=== PATIENT | male | born 1955 | race Caucasian/White ===

== ENCOUNTER → 2016-09-24 | Outpatient (REF) | LOC: WSOH 09:32 | DX: Z02.89 Encounter for other administrative examinations (principal) ==

== ENCOUNTER → 2017-12-08 | Outpatient (CLI) | payer BC | LOC: COL.LAB 09:16 | DX: R19.7 Diarrhea, unspecified (principal) ==

== ENCOUNTER 2019-05-18 18:39 | Emergency (ER) | payer BC ==
[~2019-05-18] VITALS: Ht 180.3 cm; Wt 90.9 kg
[2019-05-18 19:55] LABS: BASO % 0.2 % (0.0-2.0); EOS # 0.1 (0.0-0.7); EOS % 0.5 % (0-4.0); GRAN # 9.7 (1.4-6.5); GRAN % 81.6 % (42.2-75.2); HEMATOCRIT 41.5 % (42.0-52.0); LYMPH # 1.4 (1.2-3.4); LYMPH % 11.6 % (20.0-51.0); MEAN CELL VOLUME 95 fl (80.0-100.0); MEAN CORPUSCULAR HEMOGLOBIN 32 pg (27.0-31.0); MEAN CORPUSCULAR HGB CONC 34 g/dl (33.0-37.0); MEAN PLATELET VOLUME 10.1 fl (7.4-10.4); MONO # 0.6 (0.1-0.6); MONO % 4.8 % (1.7-9.3); PLATELET COUNT 132 K/mm3 (130-400); RED BLOOD COUNT 4.39 M/mm3 (4.20-5.60)
[2019-05-18 19:56] LABS: PROTHROMBIN TIME 11.8 SECONDS (9.7-12.8)
[2019-05-18 19:58] LABS: ALBUMIN 3.7 gm/dL (3.5-5.0); BILIRUBIN,TOTAL 0.4 mg/dL (0.0-1.0); CALCIUM 8.4 mg/dL (8.4-10.2); CREATININE, serum 0.94 (0.66-1.25); POTASSIUM 3.7 mmol/L (3.4-5.0); TOTAL PROTEIN 7.2 gm/dL (6.4-8.2)
[2019-05-18 23:20] VITALS: BP 125/82; PULSE 112; TEMP 98.4
== END 2019-05-18 23:30 | disposition short-term general hospital (02) ==
LOC: COL.ER 18:39
PROVIDERS: Emergency Medicine
DX: S72.091A Other fracture of head and neck of right femur, initial encounter for closed fracture (principal); S32.401A Unspecified fracture of right acetabulum, initial encounter for closed fracture; S52.501A Unspecified fracture of the lower end of right radius, initial encounter for closed fracture; S52.502A Unspecified fracture of the lower end of left radius, initial encounter for closed fracture; S82.001A Unspecified fracture of right patella, initial encounter for closed fracture; S82.142A Displaced bicondylar fracture of left tibia, initial encounter for closed fracture; S61.411A Laceration without foreign body of right hand, initial encounter; I10 Essential (primary) hypertension; R40.2412 Glasgow coma scale score 13-15, at arrival to emergency department; F17.210 Nicotine dependence, cigarettes, uncomplicated; Z79.82 Long term (current) use of aspirin; Z23 Encounter for immunization; V43.52XA Car driver injured in collision with other type car in traffic accident, initial encounter
CPT/HCPCS: J2270; J2405; J7030; J7120; L1846; Q4021; Q9967

== ENCOUNTER 2019-10-10 12:49 | Inpatient (IN) | payer BC ==
[~2019-10-10] VITALS: Ht 175.3 cm; Wt 94.5 kg
[2019-11-01] VITALS (12 sets, daily range): BP systolic 100–140; BP diastolic 58–93; PULSE 72–91; TEMP 97.8–99
[2019-11-01] MEDS ORDERED: NEURONTIN300 MG/CAP PO (05:54)
[2019-11-01] MEDS ORDERED: ZESTRIL 10MG10 MG PO (05:54)
[2019-11-01] MEDS ORDERED: ASPIRIN 81M81 MG/TA2 PO (05:55)
[2019-11-01] MEDS ORDERED: ZYLOPRIM 300MG300 MG PO (05:55)
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
--- NOTE | 2019-11-01 06:18 | NUR ---
Pre-op gabapentin held because the patient took his home dose of gabapentin this morning at 0430.
[2019-11-01 07:10] LABS: BASO % 0.5 % (0.0-2.0); EOS % 0.9 % (0-4.0); GRAN # 2.5 (1.4-6.5); GRAN % 57.7 % (42.2-75.2); HEMATOCRIT 43.6 % (42.0-52.0); HEMOGLOBIN 14.6 g/dl (13.5-18.0); LYMPH # 1.3 (1.2-3.4); LYMPH % 29.3 % (20.0-51.0); MEAN CELL VOLUME 92 fl (80.0-100.0); MEAN CORPUSCULAR HEMOGLOBIN 31 pg (27.0-31.0); MEAN CORPUSCULAR HGB CONC 34 g/dl (33.0-37.0); MEAN PLATELET VOLUME 9.7 fl (7.4-10.4); MONO # 0.5 (0.1-0.6); MONO % 11.1 % (1.7-9.3); PLATELET COUNT 141 K/mm3 (130-400); RED BLOOD COUNT 4.72 M/mm3 (4.20-5.60); REDCELL DISTRIBUTION WIDTH-CV 14.6 % (11.5-14.5)
[2019-11-01 07:24] LABS: CALCIUM 9.1 mg/dL (8.4-10.2); CREATININE, serum 0.65 (0.66-1.25); POTASSIUM 4.2 mmol/L (3.4-5.0)
--- NOTE | 2019-11-01 07:26 | NUR ---
Patient is taken to the OR by SATHISH Pelletier at this time. Patient belongings labeled and taken to the PACU.
[2019-11-01 10:56] LABS: BASO % 0.1 % (0.0-2.0); EOS % 0.1 % (0-4.0); GRAN # 5.7 (1.4-6.5); GRAN % 85.3 % (42.2-75.2); HEMATOCRIT 43.3 % (42.0-52.0); HEMOGLOBIN 14.1 g/dl (13.5-18.0); LYMPH # 0.8 (1.2-3.4); MEAN CELL VOLUME 93 fl (80.0-100.0); MEAN CORPUSCULAR HEMOGLOBIN 30 pg (27.0-31.0); MEAN CORPUSCULAR HGB CONC 33 g/dl (33.0-37.0); MEAN PLATELET VOLUME 9.5 fl (7.4-10.4); MONO # 0.1 (0.1-0.6); MONO % 1.8 % (1.7-9.3); PLATELET COUNT 133 K/mm3 (130-400); RED BLOOD COUNT 4.64 M/mm3 (4.20-5.60); REDCELL DISTRIBUTION WIDTH-CV 14.7 % (11.5-14.5)
[2019-11-01 11:11] LABS: CALCIUM 8.9 mg/dL (8.4-10.2); CREATININE, serum 0.96 (0.66-1.25)
--- NOTE | 2019-11-01 13:47 | NUR ---
Informatics Developer met with patient to discuss discharge planning. Patient lives in [place] and rents a basement apartment from his brother, Srinivasa (ph#[phone]). Patient states his son, Kennedy Suarez is his DPOA but could not think of his phone number off hand. Patient sees Dr. Wilkes for primary care and obtains medications from [facility] with no difficulties. Patient reports independence with ADLS and will occasionally use a cane. Patient plans to return home upon discharge with Srinivasa providing transportation. No needs identified at this time.
--- NOTE | 2019-11-01 20:09 | NUR ---
Pt resting in the room, has C/O mild pain, medications given for relief with good results. Abdominal drain has red fluid accumulation and is under bulb suction. VS have rremained stable.
--- NOTE | 2019-11-01 21:30 | NUR ---
Pt in bed. Is alert and oriented x4. Uses urinal for 600cc of light yellow urine. Has IVF infusing to right wrist without redness or swelling. Takes HS Gabapentin at this time. Rates pain 2/10 to abdomen. Has JERONIMO to bulb sx. Robotic sites dry and glued. Has not passed any gas at this time. Denies nausea.
--- NOTE | 2019-11-02 00:30 | NUR ---
Pt resting in bed. Denies concerns. Scheduled ES Tylenol given.
[2019-11-02 03:40] VITALS: BP 123/66; PULSE 72; TEMP 97.6
--- NOTE | 2019-11-02 05:00 | NUR ---
PT TAKING ORAL FLUIDS WELL. VOIDS 900CC OF YELLOW URINE. CAPPED IVF AT THIS TIME. DENIES NEED FOR STRONGER MEDS FOR PAIN THAN THE SCHEDULED ES TYLENOL.
[2019-11-02 06:14] LABS: BASO % 0.1 % (0.0-2.0); GRAN # 6.8 (1.4-6.5); GRAN % 81.6 % (42.2-75.2); HEMATOCRIT 39.8 % (42.0-52.0); HEMOGLOBIN 13.3 g/dl (13.5-18.0); LYMPH % 12.4 % (20.0-51.0); MEAN CELL VOLUME 93 fl (80.0-100.0); MEAN CORPUSCULAR HEMOGLOBIN 31 pg (27.0-31.0); MEAN CORPUSCULAR HGB CONC 33 g/dl (33.0-37.0); MEAN PLATELET VOLUME 9.8 fl (7.4-10.4); MONO # 0.5 (0.1-0.6); MONO % 5.5 % (1.7-9.3); PLATELET COUNT 141 K/mm3 (130-400); REDCELL DISTRIBUTION WIDTH-CV 14.5 % (11.5-14.5)
[2019-11-02 06:25] LABS: CALCIUM 8.8 mg/dL (8.4-10.2); CREATININE, serum 0.81 (0.66-1.25); POTASSIUM 4.3 mmol/L (3.4-5.0)
--- NOTE | 2019-11-02 08:00 | NUR ---
PATIENT IS A&O. VSS. PAIN WELL MANAGED WITH TYLENOL & NEURONTIN. ABD LAP SITES X6 ARE CD&I AND HAYDEN. JERONIMO DRAIN TO COMPRESSION WITH SMALL AMOUNTS OF BLOOD DRAINAGE NOTED. PATIENT IS EAT/DRINKING/VOIDING SUFFICENT AMOUNTS. NO C/O N/V. ABD IS SL DISTENDED POST OP. BOWL SOUNDS X4 QUADS PRESENT. PATIENT REPORTS LAST BM WAS YESTERDAY AM. HEAD TO TOE ASSESSMENT WNL. PATIENT INDEPENDENT IN ROOM. NO OTHER NEEDS. CALL LIGHT IN REACH.
[2019-11-02 08:16] VITALS: BP 157/90; PULSE 103; TEMP 97.5
--- NOTE | 2019-11-02 11:15 | NUR ---
DC'D JERONIMO DRAIN PER ORDERS. PATIENT TOLERATED WELL. COVERED SITE WITH GAUZE & FOAM TAPE. NOTED 25 CC OF BLOODY DRAINAGE IN JERONIMO.
--- NOTE | 2019-11-02 11:15 | NUR ---
UROLOGY AT BEDSIDE, SEE ORDERS.
--- NOTE | 2019-11-02 12:03 | NUR ---
First visit from the box toe maker. No needs right now.
--- NOTE | 2019-11-02 13:00 | NUR ---
PATIENT DISCHARGING HOME VIA WC TO PERSONAL VEHICLE WHERE FAMILY IS WAITING FOR HIM. GAVE DISCHARGE INSTRUCTIONS, PRESCRIPTIONS & FOLLOW UP APT. ANSWERED ALL QUESTION/CONERNS. SENT HOME PERSONAL BELONGINGS. IV ALREADY DC'D. PATIENT DISCHARGED.
== END 2019-11-02 13:00 | disposition home or self-care (01) | DRG 658 ==
LOC: INPTSU 11-01 05:31 → SURG 11-01 07:30
PROVIDERS: Nurse Anesthetist, Certified Registered; ADMIT Urology
PROC: 8E0W4CZ Robotic Assisted Procedure of Trunk Region, Percutaneous Endoscopic Approach (ICD-10-PCS; 2019-11-01)
PROC: 0TB04ZZ Excision of Right Kidney, Percutaneous Endoscopic Approach (ICD-10-PCS; principal; 2019-11-01 07:30)
DX: D49.511 Neoplasm of unspecified behavior of right kidney (principal); F17.210 Nicotine dependence, cigarettes, uncomplicated
CPT/HCPCS: A4314; J0690; J1170; J2270; J2370; J2704; J2710; J3010; J7120